=== PATIENT | male | born 1985 | race Caucasian/White ===

== ENCOUNTER 2022-11-08 17:10 | Emergency (ER) | payer OTHER ==
[2022-11-08] MEDS ORDERED: Tetracaine HCl/PF 0.5% 4 ML Bottle EYERT STA (18:04)
== END 2022-11-08 19:05 | disposition home or self-care (01) ==
LOC: MW.ED 17:10
DX: S05.02XA Injury of conjunctiva and corneal abrasion without foreign body, left eye, initial encounter (principal); W29.8XXA Contact with other powered hand tools and household machinery, initial encounter
CPT/HCPCS: 99283; J3490